=== PATIENT | female | born 1965 | race Caucasian/White ===

== ENCOUNTER → 2018-06-04 17:00 | Outpatient (CLI) | payer OTHER ==
[2013-09-09 10:49] VITALS: BMI 28.4
[~2018-06-04 17:00] MED LIST: NORCO 10/325 TA1 TA1 PO
== END | disposition home or self-care (01) ==
LOC: D.MAMMO 16:15
DX: Z12.31 Encounter for screening mammogram for malignant neoplasm of breast (principal)

== ENCOUNTER 2018-07-30 08:00 | Outpatient (CLI) | payer OTHER ==
[2013-09-09 10:49] VITALS: BMI 28.4
== END 2018-07-30 09:00 | disposition home or self-care (01) ==
LOC: D.MAMMO 08:00
DX: R92.8 Other abnormal and inconclusive findings on diagnostic imaging of breast (principal)